=== PATIENT | female | born 1985 | race Caucasian/White ===

== ENCOUNTER 2020-11-15 14:26 | Emergency (ER) | payer MEDICAID ==
[~2020-11-15] VITALS: Ht 185.4 cm; Wt 118.2 kg
[2020-11-15 14:36] VITALS: TEMP 98.2
[2020-11-15] MEDS ORDERED: CEPHALEXIN500 M1 PO (15:54)
[2020-11-15 16:07] VITALS: BP 117/80; PULSE 90
== END 2020-11-15 16:07 | disposition home or self-care (01) ==
LOC: COL.ER 14:26
DX: M79.5 Residual foreign body in soft tissue (principal); F17.210 Nicotine dependence, cigarettes, uncomplicated; W45.0XXA Nail entering through skin, initial encounter